=== PATIENT | male | born 1950 | race Caucasian/White ===

== ENCOUNTER 2017-06-27 11:16 | Emergency (ER) | payer OTHER ==
[2017-06-27] MEDS ORDERED: Sodium Chloride 0.9% 1,000 ML IV ONE (11:58)
[2017-06-27] MEDS ORDERED: Sodium Chloride 0.9% 1,000 ML ONE (12:18)
[2017-06-27 12:23] LABS: BASO # 0.1 K/uL (0.0-0.2); EOS # 0.3 K/uL (0.0-0.7); EOS % 3.6 % (0.0-4.0); HEMATOCRIT 36.5 % (35.0-51.0); LYMPH % 25.5 % (20.0-40.0); MEAN CELL VOLUME 84.4 fL (80.0-94.0); MEAN CORPUSCULAR HEMOGLOBIN 27.8 pg (27.0-31.0); MEAN PLATELET VOLUME 8.4 fL (7.2-11.7); MONO # 0.7 K/uL (0.0-0.8); MONO % 8.5 % (0.0-10.0); RED CELL DISTRIBUTION WIDTH 15.4 % (11.5-14.5)
[2017-06-27 12:33] LABS: POTASSIUM 4.1 mmol/L (3.6-5.2)
[2017-06-27 12:35] LABS: ALB/GLOB RATIO 1.1 (1.0-2.1); BILIRUBIN,TOTAL 0.5 mg/dL (0.2-1.3); TOTAL PROTEIN 7.1 g/dL (6.3-8.3)
[2017-06-27 12:36] LABS: CALCIUM 9.4 mg/dl (8.6-10.4)
--- NOTE | 2017-06-27 12:43 | RAD ---
PROCEDURE: CHEST RADIOGRAPH, 1 VIEW HISTORY: NAUSEA/VOMTING COMPARISON: None available. FINDINGS: LUNGS: Clear. PLEURA: No pneumothorax or pleural fluid seen. CARDIOVASCULAR: Normal. OSSEOUS STRUCTURES: No significant abnormalities. VISUALIZED UPPER ABDOMEN: Normal. OTHER FINDINGS: None. IMPRESSION: No active disease.
[2017-06-27] MEDS ORDERED: Albuterol 0.083% Inhal Sol (2.5 mg/3 mL) UD IH STA (12:46)
[2017-06-27 12:47] LABS: TROPONIN I 0.054 ng/mL (0.00-0.120)
[2017-06-27] MEDS ORDERED: Albuterol 0.083% Inhal Sol (2.5 mg/3 mL) UD ONE (12:58)
[2017-06-27 13:33] LABS: CHLORIDE 103 mmol/L (98-107); SODIUM 141 mmol/L (132-148)
[2017-06-27 13:34] LABS: POTASSIUM 4.1 mmol/L (3.6-5.2)
[2017-06-27 13:36] LABS: CARBON DIOXIDE 21 mmol/L (22-30); GFR AFRICAN-AMERICAN > 60
[2017-06-27 13:37] LABS: BLOOD UREA NITROGEN 24 mg/dL (9-20); CALCIUM 8.4 mg/dl (8.6-10.4); GLUCOSE,RANDOM 87 mg/dL (75-110)
[2017-06-27] MEDS ORDERED: Iodixanol 320 MG/ML 100 ML BOTTLE IV ONE (14:54)
--- NOTE | 2017-06-27 15:37 | C.PDOC ---
History Of Present Illness 66 y/o male, with PMHx of diabetes, peptic ulcer disease, CAD with 1 stent, presents to ED for evaluation of nausea, and vomiting for approximately 2 months. Patient denies any abdominal pain, diarrhea, cough, fever, chills, chest pain, or shortness of breath. Time Seen by Provider: 06/27/17 11:43 Chief Complaint (Nursing): Abdominal Pain History Per: Patient History/Exam Limitations: no limitations Onset/Duration Of Symptoms: Days (2 months) Current Symptoms Are (Timing): Still Present Severity: None Pain Scale Rating Of: 0 Radiation Of Pain To:: None Associated Symptoms: Nausea, Vomiting. denies: Diarrhea, Loss Of Appetite, Back Pain, Chest Pain, Constipation, Urinary Symptoms Exacerbating Factors: None Alleviating Factors: None Recent travel outside of the [place]: No Additional History Per: Patient Past Medical History Reviewed: Historical Data, Nursing Documentation, Vital Signs Vital Signs: Last Vital Signs Temp 98.2 F 06/27/17 11:24 Pulse 64 06/27/17 15:32 Resp 16 06/27/17 15:32 BP 143/55 L 06/27/17 15:32 Pulse Ox 94 L 06/27/17 16:52 - Medical History PMH: CAD, Diabetes Family History: States: Unknown Family Hx - Social History Hx Alcohol Use: No Hx Substance Use: No - Immunization History Hx Tetanus Toxoid Vaccination: No Hx Influenza Vaccination: No Hx Pneumococcal Vaccination: No Review Of Systems Except As Marked, All Systems Reviewed And Found Negative. Constitutional: Negative for: Fever, Chills Cardiovascular: Negative for: Chest Pain, Palpitations Respiratory: Negative for: Cough, Shortness of Breath Gastrointestinal: Positive for: Nausea, Vomiting. Negative for: Abdominal Pain , Diarrhea, Constipation, Hematemesis Genitourinary: Negative for: Dysuria, Frequency, Hematuria Musculoskeletal: Negative for: Back Pain Neurological: Negative for: Headache, Dizziness Physical Exam - Physical Exam Appears: Non-toxic, No Acute Distress Skin: Normal Color, Warm, Dry Head: Atraumatic, Normacephalic Eye(s): bilateral: Normal Inspection, PERRL, EOMI Nose: Normal Oral Mucosa: Moist Throat: Normal, No Erythema, No Exudate Neck: Supple Chest: Symmetrical Cardiovascular: Rhythm Regular, No Murmur Respiratory: Normal Breath Sounds, No Rales, No Rhonchi, No Wheezing Gastrointestinal/Abdominal: Soft, No Tenderness Extremity: Normal ROM, No Pedal Edema Neurological/Psych: Oriented x3, Normal Speech ED Course And Treatment - Laboratory Results Result Diagrams: 06/27/17 12:16 06/27/17 13:22 ECG: Interpreted By Me, Viewed By Me ECG Rhythm: Sinus Rhythm ECG Interpretation: No Acute Changes Interpretation Of ECG: Normal axis. No acute ST/T wave changes. Rate From EC (bpm) O2 Sat by Pulse Oximetry: 94 - CT Scan/US Neck soft tissue CT Other Rad Studies (CT/US): Read By Radiologist, Radiology Report Reviewed CT/US Interpretation: Accession No. : [id number]. Patient Name / ID : CLEM VICTORIA / [id number]. Exam Date : 06/27/2017 15:05:41 ( Approved ). Study Comment : Sex / Age : M / 66Y. Creator : Boaz Layne MD. Dictator : Water Attendant : Yarder Puncher : Boaz Layne MD. Approver2 : Report Date : 06/27/2017 16:13:18. My Comment : . PROCEDURE: CT scan neck dated 06/27/2017. HISTORY: Dysphagia. TECHNIQUE: CT scan of the neck with intravenous contrast. Coronal and sagittal reformats generated. Intravenous contrast dose: 100 cc Visipaque 320. Radiation dose: DLP 2403 mGy- cm. This CT exam was performed using one or more of the following dose reduction techniques: Automated exposure control, adjustment of the mA and/or kV according to patient size, and/or use of iterative reconstruction technique. . FINDINGS: There are no large cervical masses or collections. Visualized oral cavity structures appear unremarkable. Vallecular is symmetric. Free margin of the epiglottis unremarkable. Pyriform sinuses are well-aerated and also relatively symmetric. The aryepiglottic folds and true vocal cords symmetric as well. GLANDS: There is a small approximately 5.9 mm elliptical shaped vague area low attenuation left lobe thyroid gland nonspecific. This could represent small nodule or colloid cyst. Followup thyroid ultrasound could be performed for further evaluation. The visualized parotid and submandibular glands appear grossly unremarkable. LYMPH NODES: Multiple small nonspecific bilateral cervical lymph nodes are present none of which appear pathologically enlarged. CERVICAL SPINE: No acute compression fractures no retropulsed fragments. Vertebral bodies exhibit relatively normal stature. There is slight straightening of the normal cervical lordosis which could be due to patient positioning gantry however underlying element of muscle spasm may contribute. Multilevel degenerative spondylosis of the cervical spine and upper thoracic segments. VASCULAR STRUCTURES: The there are non calcified atherosclerotic plaque changes seen along the proximal and mid common carotid arteries with calcified atherosclerotic plaque at both carotid bifurcations left -sided more exuberant than the right. The common carotid arteries and carotid bifurcations as well as internal carotid arteries however do appear patent. Consider followup carotid Doppler ultrasound for further evaluation and to assess degree of stenosis if indicated. Both vertebral arteries are patent throughout. Both jugular veins are patent right-sided which is larger in caliber/more dominant than the left. OTHER FINDINGS: Small amount of air seen within upper esophagus. Mild right apical pleural thickening and adjacent parenchymal scarring. Small bleb changes are also present in the right and to a lesser degree left lung apex. . There is also an elliptical shaped somewhat translation density in the right lung apex which may also represent postinflammatory scarring. . Additionally, there is underlying centrilobular emphysematous. IMPRESSION: Probable adherent secretion along the right posterolateral margin of the upper trachea at the level of thoracic inlet. See above discussion for additional for details, findings and recommendations. Chest, Abd, Pelvis CT Other Rad Studies (CT/US): Read By Radiologist, Radiology Report Reviewed CT/US Interpretation: Accession No. : [id number]. Patient Name / ID : CLEM VICTORIA / [id number]. Exam Date : 06/27/2017 14:58:23 ( Approved ). Study Comment : Sex / Age : M / 66Y. Creator : Boaz Layne MD. Dictator : Water Attendant : Yarder Puncher : Boaz Layne MD. Approver2 : Report Date : 06/27/2017 16:48:55. My Comment : . PROCEDURE: CT chest abdomen pelvis dated 06/27/2017. HISTORY: Nausea /vomiting/dysphagia. COMPARISON: No prior study available for comparison however correlation made with concurrent CT scan neck. TECHNIQUE: IV dose administered: 100 cc Visipaque 320. Radiation dose: Total exam DLP = 327.46 mGy-cm. This CT exam was performed using one or more of the following dose reduction techniques: Automated exposure control, adjustment of the mA and/or kV according to patient size, and/or use of iterative reconstruction technique. FINDINGS: CT CHEST WITH CONTRAST: LUNGS: Centrilobular emphysematous changes are seen with upper lobe predominance. Right apical pleural thickening and adjacent parenchymal scarring . There is also a somewhat elliptical shape translucent nodular density right lung apex that could represent postinflammatory sequela. Recommend followup CT scan at 3-6 month interval on to assess stability and exclude underlying scar carcinoma or other primary lesion. Bibasilar atelectasis/ scarring changes with what appears represent some mild basilar fibrosis as well. No effusion or pneumothorax. MEDIASTINUM: Heart size is within range of normal. No significant pericardial effusion. Ascending thoracic aorta measures approximately 2.65 cm and descending thoracic aorta measures approximately 2.2 cm however there are atherosclerotic plaque changes seen along the aortic arch and descending thoracic aorta extending into the abdominal aorta. Pulmonary trunk measures approximately 2.3 cm. . LYMPH NODES: Few small nonspecific mediastinal lymph nodes are present. In addition, there also small bilateral hilar lymph nodes. PLEURA: Unremarkable. No pneumothorax. No pleural fluid. BONES: Mild multilevel degenerative spondylosis of the thoracic spine No acute compression fractures no retropulsed fragments. OTHER FINDINGS: None. CT ABDOMEN AND PELVIS: LIVER: Liver exhibits normal size measuring approximately 14 cm in CC dimension. Suspect minimal fatty hepatic infiltration No obvious hepatic mass or collection. Portal and splenic veins are opacified. GALLBLADDER AND BILE DUCTS: Gallbladder is physiologically distended. Cholelithiasis. PANCREAS: Pancreas is atrophic and fatty replaced. . No obvious pancreatic masses or collections. No significant pancreatic ductal dilatation. SPLEEN: Spleen exhibits normal size and attenuation pattern without mass collection or calcification. ADRENALS : . Prominent adrenal glands left larger than right. KIDNEYS AND URETERS: Kidneys demonstrate symmetric nephrograms. No evidence of nephrolithiasis or hydronephrosis. VASCULATURE: Unremarkable. No aortic aneurysm however atherosclerotic plaque changes seen along the abdominal aorta and iliac arteries. . In situ IVC filter. BOWEL: Evaluation of the bowel is limited due to the lack of oral contrast material. There appears to be mild wall thickening of the stomach which may in part be due to incomplete distention. Possibility of a gastritis or other intrinsic/invasive wall lesion not excluded. Multiple loops of small bowel exhibit mild the nonspecific wall thickening. Findings may represent a enteritis. Clinical correlation recommended. No evidence of acute mechanical bowel obstruction with moderate amount of stool seen throughout the colon suggesting mild fecal retention/ constipation as well. APPENDIX: Normal-appearing appendix best seen on axial image number [id number]. PERITONEUM: Unremarkable. No free fluid. No free air. LYMPH NODES: Unremarkable. No enlarged lymph nodes. BLADDER: Urinary bladder moderately distended and mild wall thickening. . Rule out bladder outlet obstruction/ urinary retention. Muscular hypertrophy may contribute. REPRODUCTIVE: Grossly unremarkable as visualized. BONES: Mild multilevel degenerative spondylosis of the lumbar spine. OTHER FINDINGS: None. IMPRESSION: Centrilobular emphysematous changes. Right apical pleural thickening and adjacent parenchymal scarring. There is a elliptical shaped on somewhat translucent nodular opacity right lung apex that could represent postinflammatory scarring however possibility of a scar carcinoma should be excluded with followup CT scan in 3-6 months. Bibasilar atelectasis/scarring. Cholelithiasis. . Suspect minimal fatty hepatic infiltration. The proximal small bowel exhibits mild wall thickening which could represent enteritis. Clinical correlation recommended. Findings also consistent with constipation. The urinary bladder is markedly distended with minimal wall thickening. Rule out urinary retention/ bladder outlet obstruction. Wall thickening may in part be due to muscular hypertrophy. Clinical correlation recommended. See above discussion for additional details and findings. Progress Note: Blood work, UA, EKG, CXR, Chest, Abd, Pel CT ordered and reviewed. Pt was given IV fluids, and nebulizer treatment. Disposition Counseled Patient/Family Regarding: Studies Performed, Diagnosis, Need For Followup, Rx Given - Disposition Referrals: Leslie Lipscomb [Staff Provider] - Florentin Galeano MD [Medical Doctor] - Disposition: HOME/ ROUTINE Disposition Time: 17:00 Condition: STABLE Additional Instructions: FOLLOW UP WITH GI SPECIALIST WITHIN 1 WEEK DRINK PLENTY OF FLUIDS RETURN TO ER IF SYMPTOMS WORSEN Prescriptions: Ondansetron [Zofran Odt] 4 mg PO Q8 PRN #15 odt PRN Reason: Nausea/Vomiting Instructions: Acute Nausea and Vomiting (ED) Forms: [facility] (Arabic) Print Language: ROMANSH - POA Present On Arrival: None - Clinical Impression Clinical Impression: Nausea & vomiting - Scribe Statement The provider has reviewed the documentation as recorded by the Scribe Stephen Chamberlain All medical record entries made by the Isaiibsindhu were at my direction and personally dictated by me. I have reviewed the chart and agree that the record accurately reflects my personal performance of the history, physical exam, medical decision making, and the department course for this patient. I have also personally directed, reviewed, and agree with the discharge instructions and disposition.
--- NOTE | 2017-06-27 16:14 | CT ---
PROCEDURE: CT scan neck dated 06/27/2017 HISTORY: Dysphagia. TECHNIQUE: CT scan of the neck with intravenous contrast. Coronal and sagittal reformats generated. Intravenous contrast dose: 100 cc Visipaque 320 Radiation dose: DLP 2403 mGy-cm This CT exam was performed using one or more of the following dose reduction techniques: Automated exposure control, adjustment of the mA and/or kV according to patient size, and/or use of iterative reconstruction technique. . FINDINGS: There are no large cervical masses or collections. Visualized oral cavity structures appear unremarkable. Vallecular is symmetric. Free margin of the epiglottis unremarkable. Pyriform sinuses are well-aerated and also relatively symmetric. The aryepiglottic folds and true vocal cords symmetric as well. GLANDS: There is a small approximately 5.9 mm elliptical shaped vague area low attenuation left lobe thyroid gland nonspecific. This could represent small nodule or colloid cyst. Followup thyroid ultrasound could be performed for further evaluation. The visualized parotid and submandibular glands appear grossly unremarkable. LYMPH NODES: Multiple small nonspecific bilateral cervical lymph nodes are present none of which appear pathologically enlarged. CERVICAL SPINE: No acute compression fractures no retropulsed fragments. Vertebral bodies exhibit relatively normal stature. There is slight straightening of the normal cervical lordosis which could be due to patient positioning gantry however underlying element of muscle spasm may contribute. Multilevel degenerative spondylosis of the cervical spine and upper thoracic segments. VASCULAR STRUCTURES: The there are non calcified atherosclerotic plaque changes seen along the proximal and mid common carotid arteries with calcified atherosclerotic plaque at both carotid bifurcations left-sided more exuberant than the right. The common carotid arteries and carotid bifurcations as well as internal carotid arteries however do appear patent. Consider followup carotid Doppler ultrasound for further evaluation and to assess degree of stenosis if indicated. Both vertebral arteries are patent throughout. Both jugular veins are patent right-sided which is larger in caliber/more dominant than the left. OTHER FINDINGS: Small amount of air seen within upper esophagus. Mild right apical pleural thickening and adjacent parenchymal scarring. Small bleb changes are also present in the right and to a lesser degree left lung apex. . There is also an elliptical shaped somewhat translation density in the right lung apex which may also represent postinflammatory scarring. . Additionally, there is underlying centrilobular emphysematous. IMPRESSION: Probable adherent secretion along the right posterolateral margin of the upper trachea at the level of thoracic inlet. See above discussion for additional for details, findings and recommendations.
--- NOTE | 2017-06-27 16:50 | CT ---
PROCEDURE: CT chest abdomen pelvis dated 06/27/2017. HISTORY: Nausea /vomiting/dysphagia COMPARISON: No prior study available for comparison however correlation made with concurrent CT scan neck TECHNIQUE: IV dose administered: 100 cc Visipaque 320 Radiation dose: Total exam DLP = 327.46 mGy-cm. This CT exam was performed using one or more of the following dose reduction techniques: Automated exposure control, adjustment of the mA and/or kV according to patient size, and/or use of iterative reconstruction technique. FINDINGS: CT CHEST WITH CONTRAST: LUNGS: Centrilobular emphysematous changes are seen with upper lobe predominance. Right apical pleural thickening and adjacent parenchymal scarring . There is also a somewhat elliptical shape translucent nodular density right lung apex that could represent postinflammatory sequela. Recommend followup CT scan at 3-6 month interval on to assess stability and exclude underlying scar carcinoma or other primary lesion. Bibasilar atelectasis/ scarring changes with what appears represent some mild basilar fibrosis as well. No effusion or pneumothorax. MEDIASTINUM: Heart size is within range of normal. No significant pericardial effusion. Ascending thoracic aorta measures approximately 2.65 cm and descending thoracic aorta measures approximately 2.2 cm however there are atherosclerotic plaque changes seen along the aortic arch and descending thoracic aorta extending into the abdominal aorta. Pulmonary trunk measures approximately 2.3 cm. . LYMPH NODES: Few small nonspecific mediastinal lymph nodes are present. In addition, there also small bilateral hilar lymph nodes PLEURA: Unremarkable. No pneumothorax. No pleural fluid. BONES: Mild multilevel degenerative spondylosis of the thoracic spine No acute compression fractures no retropulsed fragments. OTHER FINDINGS: None. CT ABDOMEN AND PELVIS: LIVER: Liver exhibits normal size measuring approximately 14 cm in CC dimension. Suspect minimal fatty hepatic infiltration No obvious hepatic mass or collection. Portal and splenic veins are opacified. GALLBLADDER AND BILE DUCTS: Gallbladder is physiologically distended. Cholelithiasis. PANCREAS: Pancreas is atrophic and fatty replaced. . No obvious pancreatic masses or collections. No significant pancreatic ductal dilatation. SPLEEN: Spleen exhibits normal size and attenuation pattern without mass collection or calcification. ADRENALS: . Prominent adrenal glands left larger than right. KIDNEYS AND URETERS: Kidneys demonstrate symmetric nephrograms. No evidence of nephrolithiasis or hydronephrosis. VASCULATURE: Unremarkable. No aortic aneurysm however atherosclerotic plaque changes seen along the abdominal aorta and iliac arteries. . In situ IVC filter BOWEL: Evaluation of the bowel is limited due to the lack of oral contrast material. There appears to be mild wall thickening of the stomach which may in part be due to incomplete distention. Possibility of a gastritis or other intrinsic/invasive wall lesion not excluded. Multiple loops of small bowel exhibit mild the nonspecific wall thickening. Findings may represent a enteritis. Clinical correlation recommended. No evidence of acute mechanical bowel obstruction with moderate amount of stool seen throughout the colon suggesting mild fecal retention/ constipation as well. APPENDIX: Normal-appearing appendix best seen on axial image number [id number]. PERITONEUM: Unremarkable. No free fluid. No free air. LYMPH NODES: Unremarkable. No enlarged lymph nodes. BLADDER: Urinary bladder moderately distended and mild wall thickening. . Rule out bladder outlet obstruction/urinary retention. Muscular hypertrophy may contribute REPRODUCTIVE: Grossly unremarkable as visualized BONES: Mild multilevel degenerative spondylosis of the lumbar spine OTHER FINDINGS: None. IMPRESSION: Centrilobular emphysematous changes. Right apical pleural thickening and adjacent parenchymal scarring. There is a elliptical shaped on somewhat translucent nodular opacity right lung apex that could represent postinflammatory scarring however possibility of a scar carcinoma should be excluded with followup CT scan in 3-6 months. Bibasilar atelectasis/scarring. Cholelithiasis. . Suspect minimal fatty hepatic infiltration The proximal small bowel exhibits mild wall thickening which could represent enteritis. Clinical correlation recommended. Findings also consistent with constipation The urinary bladder is markedly distended with minimal wall thickening. Rule out urinary retention/bladder outlet obstruction. Wall thickening may in part be due to muscular hypertrophy. Clinical correlation recommended. See above discussion for additional details and findings.
[2017-06-27 17:08] VITALS: BP 101/64; PULSE 78; RESP 78; TEMP 98.4; O2SAT 99
--- NOTE | 2017-07-01 22:20 | CARD ---
APPROVED REPORT EKG Measurement Heart [id number] <Conclusion> Normal sinus rhythm Normal ECG
== END 2017-06-27 17:08 | disposition home or self-care (01) ==
LOC: C.ER 11:16
DX: R11.2 Nausea with vomiting, unspecified (principal); E11.9 Type 2 diabetes mellitus without complications; I25.10 Atherosclerotic heart disease of native coronary artery without angina pectoris
CPT/HCPCS: 70491; 71010; 71260; 74177; 80048; 80053; 82550; 82553; 84484; 85025; 94640; 96360; 99284; J7040; Q9967

== ENCOUNTER 2018-07-04 12:51 | Emergency (ER) | payer OTHER ==
[2018-07-04 13:06] VITALS: TEMP 98.6
[2018-07-04 13:09] VITALS: O2SAT 99
--- NOTE | 2018-07-04 13:51 | C.PDOC ---
History Of Present Illness 67-year-old male, presents to the emergency department with complaints of loss of hearing. According to , pt lost hearing from February of this year, however did not see a doctor yet. Over the last week, pt developed right sided toothache, that is radiating to the right ear. Pt denies any medication use, fever, vomiting, chest pain or any other associated symptoms. No other complaints at this time. Time Seen by Provider: 07/04/18 13:22 Chief Complaint (Nursing): ENT Problem History Per: Patient, Family History/Exam Limitations: no limitations Onset/Duration Of Symptoms: Days Current Symptoms Are (Timing): Still Present Severity: Moderate Past Medical History Reviewed: Historical Data, Nursing Documentation, Vital Signs Vital Signs: Last Vital Signs Temp 98.6 F 07/04/18 13:03 Pulse 68 07/04/18 13:03 Resp 16 07/04/18 13:03 BP 98/62 L 07/04/18 13:03 Pulse Ox 99 07/04/18 13:03 - Medical History PMH: CAD, Diabetes Family History: States: No Known Family Hx - Social History Hx Alcohol Use: No Hx Substance Use: No - Immunization History Hx Tetanus Toxoid Vaccination: No Hx Influenza Vaccination: No Hx Pneumococcal Vaccination: No Review Of Systems Constitutional: Negative for: Fever ENT: Negative for: Ear Discharge, Throat Pain Gastrointestinal: Negative for: Nausea, Vomiting Skin: Negative for: Rash Neurological: Negative for: Weakness, Numbness, Headache, Dizziness Physical Exam - Physical Exam Appears: Non-toxic, No Acute Distress Skin: Warm, Dry, No Rash Head: Atraumatic, Normacephalic Eye(s): bilateral: Normal Inspection, PERRL Ear(s): Left: Normal, Right: Other (swelling of ear canal) Nose: Normal Oral Mucosa: Moist Tongue: Normal Appearing Teeth: No Normal Dentition (Poor), Tender To Palpation, Other (right distal molar tooth is dark brown, +rotting, +tender to percussion) Gingiva: Normal Appearing Throat: Normal Neck: Normal ROM, Supple Chest: Symmetrical Cardiovascular: Rhythm Regular Respiratory: Normal Breath Sounds, No Accessory Muscle Use (No apparent respiratory distress) Gastrointestinal/Abdominal: Normal Exam Back: Normal Inspection Extremity: Normal ROM Neurological/Psych: Oriented x3, Normal Speech ED Course And Treatment O2 Sat by Pulse Oximetry: 99 Medical Decision Making Medical Decision Making: Plan: * Amoxicillin, Tylenol * Reassess and Disposition Disposition Counseled Patient/Family Regarding: Diagnosis, Need For Followup, Rx Given - Disposition Referrals: Florentin Galeano MD [Medical Doctor] - Armani Ruiz MD [Staff Provider] - Disposition: HOME/ ROUTINE Disposition Time: 13:51 Condition: STABLE Additional Instructions: CONTINUE IBUPROFEN 400 MG EVERY 6-8 HR WITH FOOD NEEDED FOR PAIN. FOLLOW UP WITH DENTIST AND ENT ON FRIDAY FOR RE-EVALUATION. IF SYMPTOMS GET WORSE OR ANY NEW CONCERNING SYMPTOMS DEVELOP RETURN TO ED. Prescriptions: Amoxicillin [Amoxil 500 mg Cap] 1 cap PO TID #29 cap Neomycin/Polymyxin/Hydrocortis [Cortisporin Otic Susp] 4 drop TOP TID #1 bottle Instructions: Ear Infections (Otitis Media) (DC), Dental Pain (DC) Forms: [employer] (Irish) - Clinical Impression Clinical Impression: Otitis media, Pain, dental - Scribe Statement The provider has reviewed the documentation as recorded by the Scribe (Ermias Sanchez) All medical record entries made by the Scribe were at my direction and personally dictated by me. I have reviewed the chart and agree that the record accurately reflects my personal performance of the history, physical exam, medical decision making, and the department course for this patient. I have also personally directed, reviewed, and agree with the discharge instructions and disposition.
[2018-07-04 14:11] VITALS: BP 101/69; PULSE 71; RESP 18
== END 2018-07-04 14:11 | disposition home or self-care (01) ==
LOC: C.ER 12:51
DX: H66.91 Otitis media, unspecified, right ear (principal); K08.89 Other specified disorders of teeth and supporting structures